=== PATIENT | female | born 1975 | race Caucasian/White ===

== ENCOUNTER 2020-09-12 22:14 | Emergency (ER) | payer OTHER ==
[~2020-09-12 22:14] MED LIST: ADULT LOW DOSE81 MG PO; AMIODARONE HCL400 MG PO; BRILINTA 90 MG90 MG PO; FISH OIL 1,0001 EACH PO; GLUCOPHAGE XR500 MG PO; HYDROCHLOROTHIA25 MG PO; INVEGA SUS234 MG/1.5 IM; KLONOPIN0.5 MG PO; LIPITOR10 MG PO; LOXAPINE5 MG PO; NICOTINE PATCH1 EAC2 TD; NITROSTAT 0.40.4 MG SL; NP THYROID30 MG PO; PROTONIX40 MG PO; REQUIP0.25 MG PO; TOPROL XL25 MG PO; VITAMIN D21250 MCG PO
== END 2020-09-12 23:41 | disposition left against medical advice (07) ==
LOC: ER1 22:14
DX: Z53.21 Procedure and treatment not carried out due to patient leaving prior to being seen by health care provider (principal)
CPT/HCPCS: 93005

== ENCOUNTER 2020-09-13 19:13 | Emergency (ER) | payer OTHER ==
[2020-09-13 20:45] LABS: RED BLOOD COUNT 4.17 M/UL (4.00-5.10); WHITE BLOOD COUNT 10.2 K/UL (4.5-11.0)
[2020-09-13 21:18] LABS: BUN/CREATININE RATIO 17 (0-10)
[2020-09-14 04:03] LABS: HEMOGLOBIN 12.3 gm/dl (12.3-15.3); RED BLOOD COUNT 3.95 M/UL (4.00-5.10); WHITE BLOOD COUNT 10.8 K/UL (4.5-11.0)
== END 2020-09-14 17:22 | disposition home or self-care (01) ==
LOC: ER1 19:13 → CDU 21:40 → ER1 21:40 → CDU 09-14 17:22
PROVIDERS: Family Medicine; Internal Medicine
DX: R07.89 Other chest pain (principal); I10 Essential (primary) hypertension; E78.5 Hyperlipidemia, unspecified; I25.10 Atherosclerotic heart disease of native coronary artery without angina pectoris; E11.9 Type 2 diabetes mellitus without complications; F41.9 Anxiety disorder, unspecified; F32.9 Major depressive disorder, single episode, unspecified; E87.6 Hypokalemia; R74.01 Elevation of levels of liver transaminase levels; R79.89 Other specified abnormal findings of blood chemistry; I25.2 Old myocardial infarction; E03.9 Hypothyroidism, unspecified; F17.210 Nicotine dependence, cigarettes, uncomplicated; Z95.5 Presence of coronary angioplasty implant and graft; Z86.73 Personal history of transient ischemic attack (TIA), and cerebral infarction without residual deficits; Z79.82 Long term (current) use of aspirin; Z79.02 Long term (current) use of antithrombotics/antiplatelets; Z79.84 Long term (current) use of oral hypoglycemic drugs; Z79.899 Other long term (current) drug therapy; Z20.822 Contact with and (suspected) exposure to COVID-19
CPT/HCPCS: 71045; 76705; 80053; 80061; 82550; 82553; 83036; 83735; 83874; 84443; 84484; 85025; 99285; C9113; G0378; J1885; U0002

== ENCOUNTER → 2020-10-19 | Outpatient (CLI) | payer OTHER | LOC: NM 12:38 | DX: R10.11 Right upper quadrant pain (principal) | CPT/HCPCS: 78226; A9537 ==

== ENCOUNTER 2020-11-22 13:22 | Emergency (ER) | payer OTHER ==
[2020-11-22 14:21] LABS: HEMOGLOBIN 13.1 gm/dl (12.3-15.3); RED BLOOD COUNT 4.25 M/UL (4.00-5.10); WHITE BLOOD COUNT 11.9 K/UL (4.5-11.0)
[2020-11-22 15:22] LABS: BUN/CREATININE RATIO 14 (0-10)
== END 2020-11-22 17:23 | disposition home or self-care (01) ==
LOC: ER1 13:22
PROVIDERS: Emergency Medicine
DX: R00.2 Palpitations (principal); E87.6 Hypokalemia; I11.9 Hypertensive heart disease without heart failure; I25.2 Old myocardial infarction; J44.9 Chronic obstructive pulmonary disease, unspecified; Z20.822 Contact with and (suspected) exposure to COVID-19
CPT/HCPCS: 0240U; 71045; 80053; 82550; 82553; 83605; 83690; 84484; 84703; 85025; 93005; 99285; Q9967

== ENCOUNTER 2020-11-29 09:04 | Emergency (ER) | payer OTHER ==
[2020-11-29 11:48] LABS: HEMOGLOBIN 11.8 gm/dl (12.3-15.3); RED BLOOD COUNT 3.83 M/UL (4.00-5.10); WHITE BLOOD COUNT 12.1 K/UL (4.5-11.0)
[2020-11-29 12:13] LABS: BUN/CREATININE RATIO 9 (0-10)
[2020-11-29] MEDS ORDERED: BACLOFEN10 MG PO (13:49)
[2020-11-29] MEDS ORDERED: TORADOL 10 MG T10 MG PO (13:49)
== END 2020-11-29 14:18 | disposition home or self-care (01) ==
LOC: ER1 09:04
PROVIDERS: Nurse Practitioner
DX: M54.5 Low back pain (principal); E11.9 Type 2 diabetes mellitus without complications; I25.2 Old myocardial infarction; I10 Essential (primary) hypertension; Z79.01 Long term (current) use of anticoagulants; Z87.891 Personal history of nicotine dependence
CPT/HCPCS: 72100; 73522; 80053; 81001; 83605; 84703; 85025; 99284; J1885; J2360

== ENCOUNTER 2020-12-14 18:35 | Emergency (ER) | payer OTHER ==
[~2020-12-14 18:35] MED LIST changes: +BACLOFEN10 MG PO; +TORADOL 10 MG T10 MG PO
[2020-12-14 19:14] LABS: HEMOGLOBIN 12.4 gm/dl (12.3-15.3); RED BLOOD COUNT 4.09 M/UL (4.00-5.10)
[2020-12-14 19:21] LABS: BUN/CREATININE RATIO 20 (0-10)
== END 2020-12-15 02:20 | disposition home or self-care (01) ==
LOC: ER1 18:35
PROVIDERS: Physician Assistant
DX: I95.1 Orthostatic hypotension (principal); R53.1 Weakness; R51.9 Headache, unspecified; I25.10 Atherosclerotic heart disease of native coronary artery without angina pectoris; E11.9 Type 2 diabetes mellitus without complications; E78.5 Hyperlipidemia, unspecified; E03.9 Hypothyroidism, unspecified; F17.200 Nicotine dependence, unspecified, uncomplicated; I25.2 Old myocardial infarction; I11.9 Hypertensive heart disease without heart failure
CPT/HCPCS: 70450; 71045; 80053; 81001; 82550; 82553; 83874; 83880; 84484; 84703; 85025; 87086; 93005; 96374; 99285; J2405

== ENCOUNTER → 2021-01-01 | Outpatient (CLI) | payer OTHER | LOC: HEART 5 15:05 | DX: J44.9 Chronic obstructive pulmonary disease, unspecified (principal); D68.9 Coagulation defect, unspecified; M19.90 Unspecified osteoarthritis, unspecified site; F41.9 Anxiety disorder, unspecified | CPT/HCPCS: 94060 ==

== ENCOUNTER → 2021-03-08 | Outpatient (CLI) | payer OTHER | LOC: HEART 5 10:34 | DX: I25.10 Atherosclerotic heart disease of native coronary artery without angina pectoris (principal); I08.1 Rheumatic disorders of both mitral and tricuspid valves | CPT/HCPCS: 93306 ==

== ENCOUNTER → 2021-05-02 | Outpatient (CLI) | payer OTHER | LOC: CT 08:00 | DX: R91.1 Solitary pulmonary nodule (principal) | CPT/HCPCS: 71250 ==

== ENCOUNTER 2021-10-02 12:57 | Emergency (ER) | payer OTHER ==
[2021-10-02 15:00] LABS: HEMOGLOBIN 10.3 gm/dl (12.3-15.3); RED BLOOD COUNT 3.78 M/UL (4.00-5.10); WHITE BLOOD COUNT 9.5 K/UL (4.5-11.0)
[2021-10-02 15:24] LABS: BUN/CREATININE RATIO 11 (0-10)
== END 2021-10-02 18:18 | disposition home or self-care (01) ==
LOC: ER1 12:57
PROVIDERS: Student in an Organized Health Care Education/Training Program
DX: R07.9 Chest pain, unspecified (principal); M79.604 Pain in right leg; I25.2 Old myocardial infarction; I10 Essential (primary) hypertension
CPT/HCPCS: 71045; 80053; 82550; 82553; 83735; 84484; 85025; 93005; 99285; J7030

== ENCOUNTER 2021-11-18 18:29 | Emergency (ER) | payer OTHER ==
[2021-11-18 19:40] LABS: HEMOGLOBIN 10.2 gm/dl (12.3-15.3); RED BLOOD COUNT 3.81 M/UL (4.00-5.10); WHITE BLOOD COUNT 10.7 K/UL (4.5-11.0)
== END 2021-11-18 23:52 | disposition home or self-care (01) ==
LOC: ER1 18:29
PROVIDERS: Family Medicine
DX: M79.601 Pain in right arm (principal); M79.89 Other specified soft tissue disorders; L55.9 Sunburn, unspecified; E11.9 Type 2 diabetes mellitus without complications; I10 Essential (primary) hypertension; Z79.01 Long term (current) use of anticoagulants; Z51.81 Encounter for therapeutic drug level monitoring
CPT/HCPCS: 80048; 85025; 85610; 96372; 99283; J1650